=== PATIENT | female | born 1995 | race Caucasian/White ===

== ENCOUNTER 2016-09-08 23:18 | Emergency (ER) | payer BC, MEDICAID ==
[~2016-09-08 23:18] MED LIST: DOCO200C PO; MACR100C2 PO; PROM25TA5 PO
--- NOTE | 2016-09-09 00:12 | PD ---
HPI Chief Complaint leaking? Date Seen: Sep 09, 2016 Time Seen: 00:00 Travel History International Travel<30 Days: No Contact w/Intl Traveler<30Days: No Known Affected Area: No History of Present Illness HPI Pt is a 21 y/o G1 with IUP at 40 wks who presents for eval for SROM. Pt states she felt vaginal wetness this am around 5, then again when she awoke at 7. Pt reports she noted mucous this am, but continued to feel wet throughout the day, and fluid was more watery (less mucous) with no odor. Pt reports occ contractions and abdominal soreness. denies vb. +FM Para: 0 : 1 History Past Medical History Narrative Medical migraines Past Surgical History Surgical History: No Previous Surgery Family History Family History: Negative Social History Alcohol Use: No Tobacco Use: Yes (2 cigarettes/day) Substance Abuse: No (h/o marijuana use, denies current use) Allergies-Medications (Allergen,Severity, Reaction): Coded Allergies: No Known Allergies (Verified , 02/09/16) Home Meds Active Scripts Nitrofurantoin Monohydrate Macrocrystals (Macrobid)100 Mg [id number] Mg PO BID 7 Days Ref 0 Prov:Dipti Mills DIRECTOR RISK 02/09/16 Reported Medications Docosahexaenoic Acid ( Dha)200 Mg Cap1 Cap PO DAILY 02/09/16 Promethazine (Phenergan)25 Mg Tab25 Mg PO Q6H PRN (Nausea/Vomiting) Ref 0 02/09/16 Review of Systems General / Constitutional: Weight Gain Eyes: No: Diploplia, Blurred Vision, Visual changes, Pain, Photophobia, Other HENT: No: Headaches, Vertigo, Dental Difficulties, Lightheadedness, Other Respiratory: No: Cough, Short of Breath, Wheezing, Other Gastrointestinal: No: Nausea, Vomiting, Diarrhea, Abdominal Pain, Hematemesis, Hematochezia, Constipation, Changes in Bowel Habits, Indigestion, Loss of Appetite, Other Genitourinary: No: Urgency, Frequency, Dysuria, Nocturia, Hematuria, Decreased Urinary Output, Oliguria, Hesitancy, Dribbling, Incontinence, Pelvic Pain, Dyspareunia, Discharge, Menorrhagia, Vaginal Bleeding, Other Musculoskeletal: No: Limited ROM, Weakness, Cramping, Edema, Pain, Other Skin: No Rash, No Itching, No Dryness, No Lumps, No Change in Pigmentation, No Change in Nails, No Alopecia, No Lesions, No Breast Lumps, No Breast Tenderness , No Breast Swelling, No Other Neurologic: No: Weakness, Dizziness, Syncope, Focal Abnormalities, Coordination Problem, Headache, Slurred Speech, Seizures, Other Psychiatric: No: Anxiety, Depression, Suicidal Ideations, Disorder of Thought, Mood Disorder, Substance Abuse, Homicidal Ideation, Other Endocrine: No: Heat Intolerance, Cold Intolerance, Polydipsia, Polyuria, Other Hematologic/Lymphatic: No Easy Bruising, No Lymph Node Enlargement, No Other Physical Exam 123/91, repeat BP 113/74 Narrative GENERAL: Well-nourished, well-developed patient. SKIN: Warm and dry. HEAD: Normocephalic and atraumatic. EYES: No scleral icterus. No injection or drainage. ENT: No nasal drainage noted. Mucous membranes pink. Airway patent. NECK: Supple, trachea midline. No JVD. CARDIOVASCULAR: Regular rate and rhythm without murmurs, gallops, or rubs. RESPIRATORY: Breath sounds equal bilaterally. No accessory muscle use. ABDOMEN/GI: Abdomen soft, non-tender, bowel sounds present, no rebound, no guarding Gravid GENITOURINARY: External Genitalia: intact and normal in appearance BUS glands: [-] Cervix: 1/thick/-3 per RN exam Dilatation: [-] Effacement: [-] Station: [-] Presentation: [-] Membranes: intact; amnisure negative Uterine Contractions: irritability FHT's: Category: 1 Baseline: 130s Reactive: yes Variability: mod Decels: none EXTREMITIES: No cyanosis or edema. BACK: Nontender without obvious deformity. No CVA tenderness. NEUROLOGICAL: Awake and alert. Motor and sensory grossly within normal limits. Five out of 5 muscle strength in all muscle groups. Normal speech. Data Data Vital Signs Reviewed: Yes MDM Medical Record Reviewed: Yes Narrative Course / MDM 21 y/o G1 with IUP at 40w with possible LOF --amnisure neg --no evidence of labor at this time keep OB appt tomorrow labor precautions/FKC Diagnosis Diagnosis: Primary Impression: False labor after 37 completed weeks of gestation Additional Impression: 40 weeks gestation of Disposition: DISCHARGE HOME Condition: Stable Patient Instructions: Movement (ED), Having Your Baby: The Labor Process (GEN), General Instructions, Early Labor Signs (ED) Stew Mitchell MD Sep 09, 2016 00:12
== END 2016-09-09 01:45 | disposition home or self-care (01) ==
LOC: HOBED 23:18
DX: O47.1 False labor at or after 37 completed weeks of gestation (principal); O99.333 Smoking (tobacco) complicating pregnancy, third trimester; Z3A.40 40 weeks gestation of pregnancy
CPT/HCPCS: 84112; 99282

== ENCOUNTER 2016-09-14 03:06 | Emergency (ER) | payer MEDICAID ==
--- NOTE | 2016-09-14 03:46 | PD ---
HPI Chief Complaint contractions Date Seen: Sep 14, 2016 Time Seen: 03:40 Travel History International Travel<30 Days: No Contact w/Intl Traveler<30Days: No Known Affected Area: No History of Present Illness HPI 21 yo at 40 and 4 days arrives with contractions for past several hours. Irritating but not terribly strong Para: 0 : 1 History Past Medical History Narrative Medical migraines Past Surgical History Surgical History: No Previous Surgery Family History Family History: Negative Social History Alcohol Use: No Tobacco Use: Yes (1/2 ppd) Substance Abuse: Yes (marijuana) Allergies-Medications (Allergen,Severity, Reaction): Coded Allergies: No Known Allergies (Verified , 09/09/16) Home Meds Active Scripts Nitrofurantoin Monohydrate Macrocrystals (Macrobid)100 Mg [id number] Mg PO BID 7 Days Ref 0 Prov:[employer] PROCESS ARCHITECT 02/09/16 Reported Medications Docosahexaenoic Acid ( Dha)200 Mg Cap1 Cap PO DAILY 02/09/16 Promethazine (Phenergan)25 Mg Tab25 Mg PO Q6H PRN (Nausea/Vomiting) Ref 0 02/09/16 Review of Systems Except as stated in HPI: all other systems reviewed are Neg Physical Exam Narrative GENERAL: Well-nourished, well-developed patient. SKIN: Warm and dry. HEAD: Normocephalic and atraumatic. EYES: No scleral icterus. No injection or drainage. ENT: No nasal drainage noted. Mucous membranes pink. Airway patent. NECK: Supple, trachea midline. No JVD. CARDIOVASCULAR: Regular rate and rhythm without murmurs, gallops, or rubs. RESPIRATORY: Breath sounds equal bilaterally. No accessory muscle use. BREASTS: Bilateral exam showed no masses , no retractions, no nipple discharge. ABDOMEN/GI: Abdomen soft, non-tender, bowel sounds present, no rebound, no guarding Gravid to [-37] weeks size Fundal Height: [-] GENITOURINARY: External Genitalia: intact and normal in appearance BUS glands: [-nl] Cervix: [posterior-] Dilatation: [1-] Effacement: [-50] Station: [-3-] Presentation: [vertex-] Membranes: [intact] Uterine Contractions: [q8min irregular] FHT's: Category: [1-] Baseline: [145-] Reactive: [mod-] Variability: [mod-] Decels: [absent-] EXTREMITIES: No cyanosis or edema. BACK: Nontender without obvious deformity. No CVA tenderness. NEUROLOGICAL: Awake and alert. Motor and sensory grossly within normal limits. Five out of 5 muscle strength in all muscle groups. Normal speech. Data Data Vital Signs Reviewed: Yes [facility] Medical Record Reviewed: Yes Plan 21 yo at 40 5days gestation with false labor, no cervical change since last appointment 1 week ago Appt today at 9:30am for evaluation in office Diagnosis Diagnosis: Primary Impression: 40 weeks gestation of Additional Impression: False labor after 37 completed weeks of gestation Disposition: 01 DISCHARGE HOME Rakel Plummer MD Sep 14, 2016 03:45
[2016-09-14] MEDS ORDERED: PREN1TAB58 (21:52)
== END 2016-09-14 03:48 | disposition home or self-care (01) ==
LOC: HOBED 03:06
DX: O47.1 False labor at or after 37 completed weeks of gestation (principal); O99.333 Smoking (tobacco) complicating pregnancy, third trimester; Z3A.40 40 weeks gestation of pregnancy; Z79.899 Other long term (current) drug therapy
CPT/HCPCS: 59025

== ENCOUNTER 2016-09-14 08:01 | Inpatient (IN) | payer MEDICAID ==
[2016-09-14] VITALS (126 sets, daily range): BP systolic 92–155; BP diastolic 41–90; PULSE 62–172; RESP 2–20; TEMP 97.5–99
[~2016-09-14] VITALS: Ht 172.7 cm; Wt 69.9 kg
[2016-09-14] MEDS ORDERED: LACTATED RINGER'S 1000 ML INJ 1,000 ML IV PRN (08:32)
[2016-09-14] MEDS ORDERED: LACTATED RINGER'S 1000 ML INJ 1,000 ML IV SCH (08:32)
--- NOTE | 2016-09-14 08:32 | PD ---
HPI Chief Complaint Contractions Date Seen: Sep 14, 2016 Time Seen: 08:28 Travel History International Travel<30 Days: No Contact w/Intl Traveler<30Days: No Known Affected Area: No History of Present Illness HPI 21-year-old who is at 40 weeks and 5 days who comes in complaining of worsening contractions. She was seen at about 0300 today due to contractions but cervix was only a centimeter which was unchanged with her previous cervical exam. She states since that time her contractions have worsened in intensity and increased in frequency along with bloody show. Patient is GBS negative Para: 0 : 1 History Past Medical History Medical History: Denies Significant Hx Past Surgical History Surgical History: No Previous Surgery Family History Family History: Negative Social History Alcohol Use: No Tobacco Use: Yes (half a pack per day) Substance Abuse: Yes (marijuana) Allergies-Medications (Allergen,Severity, Reaction): Coded Allergies: No Known Allergies (Verified , 09/09/16) Home Meds Active Scripts Nitrofurantoin Monohydrate Macrocrystals (Macrobid)100 Mg [id number] Mg PO BID 7 Days Ref 0 Prov:Dipti Mills 02/09/16 Reported Medications Docosahexaenoic Acid ( Dha)200 Mg Cap1 Cap PO DAILY 02/09/16 Promethazine (Phenergan)25 Mg Tab25 Mg PO Q6H PRN (Nausea/Vomiting) Ref 0 02/09/16 Review of Systems Except as stated in HPI: all other systems reviewed are Neg Physical Exam Narrative GENERAL: Well-nourished, well-developed patient. SKIN: Warm and dry. HEAD: Normocephalic and atraumatic. EYES: No scleral icterus. No injection or drainage. ENT: No nasal drainage noted. Mucous membranes pink. Airway patent. NECK: Supple, trachea midline. No JVD. CARDIOVASCULAR: Regular rate and rhythm without murmurs, gallops, or rubs. RESPIRATORY: Breath sounds equal bilaterally. No accessory muscle use. BREASTS: Bilateral exam showed no masses , no retractions, no nipple discharge. ABDOMEN/GI: Abdomen soft, non-tender, bowel sounds present, no rebound, no guarding Gravid to [-38] weeks size Fundal Height: [-] GENITOURINARY: External Genitalia: intact and normal in appearance BUS glands: [-Normal] Cervix: [Mid position] Dilatation: [2-3] Effacement: [90-] Station: [--2] Presentation: [-Vertex] Membranes: [intact ] Uterine Contractions: [Every 5-] FHT's: Category: [1-] Baseline: [150-] Reactive: [Moderate-] Variability: [Moderate-] Decels: [-Absent] EXTREMITIES: No cyanosis or edema. BACK: Nontender without obvious deformity. No CVA tenderness. NEUROLOGICAL: Awake and alert. Motor and sensory grossly within normal limits. Five out of 5 muscle strength in all muscle groups. Normal speech. Data Data Vital Signs Reviewed: Yes MDM Plan 21-year-old who is at 40 weeks and 5 days comes in in early labor Definite cervical change since her last exam at 03 100 today, patient is GBS negative Plan admission to labor and delivery and patient requests epidural Diagnosis Diagnosis: Primary Impression: 40 weeks gestation of Additional Impression: Irregular uterine contractions Rakel Plummer MD Sep 14, 2016 08:32
[2016-09-14] MEDS ORDERED: CITRIC ACID-SODIUM CITRATE LIQ 30 ML UDC PO SCH (08:45)
[2016-09-14] MEDS ORDERED: MINERAL OIL 10 ML VIAL TOPICAL PRN (08:45)
[2016-09-14] MEDS ORDERED: LIDOCAINE HCL 1% 50 ML VIAL I-DERMAL PRN (08:45)
[2016-09-14] MEDS ORDERED: SODIUM CHLORID 0.9% 500 ML INJ 500 ML IV PRN (08:45)
[2016-09-14] MEDS ORDERED: OXYTOCIN 30 UNITS-500ML PREMIX 500 ML IV ONE (08:45)
[2016-09-14] MEDS ORDERED: LIDOCAINE HCL 1% 50 ML VIAL INFIL PRN (08:45)
[2016-09-14] MEDS ORDERED: SODIUM CHLOR 0.9% 1000 ML INJ 1,000 ML IV PRN (08:52)
[2016-09-14 09:06] LABS: AUTOMATED NEUTROPHIL # 11.5 TH/MM3 (1.8-7.7); BASOPHIL % 0.3 % (0.0-2.0); EOSINOPHIL % 0.2 % (0.0-4.0); HEMATOCRIT 40.6 % (35.0-46.0); HEMO FLAGS DIFF FINAL; MEAN CELL VOLUME 89.4 FL (80.0-100.0); MEAN CORPUSCULAR HEMOGLOBIN 30.2 PG (27.0-34.0); MEAN CORPUSCULAR HGB CONC 33.7 % (32.0-36.0); MONO % 10.1 % (0.0-8.0); NEUT % 76.4 % (16.0-70.0); PLATELET COUNT 190 TH/MM3 (150-450); RED BLOOD COUNT 4.54 MIL/MM3 (4.00-5.30); RED CELL DISTRIBUTION WIDTH 13.3 % (11.6-17.2); WHITE BLOOD COUNT 15.1 TH/MM3 (4.0-11.0)
[2016-09-14] MEDS ORDERED: ePHEDrine/NS 25 MG/5 ML SYR ONE (09:18)
[2016-09-14] MEDS ORDERED: fentaNYL 2MCG-BUPIV 0.125% INJ 100 ML ONE ×2 (09:18→17:18)
[2016-09-14 09:25] LABS: BLOOD, URINE NEG (NEG); COMMENT (UR) CULT NOT INDICATED; CULTURE IF INDICATED CULT NOT INDICATED; GLUCOSE,URINE NEG (NEG); KETONE, URINE 80 mg/dL (NEG); MUCUS URINE FEW /lpf (OCC); NITRITE,URINE NEG (NEG); PH, URINE 7.5 (5.0-8.5); URINE COLOR YELLOW (YELLW/STRAW)
[2016-09-14 10:32] LABS: AMPHETAMINE, URINE NEG (NEG); BARBITURATES, URINE NEG (NEG); COCAINE, URINE NEG (NEG)
[2016-09-14] MEDS ORDERED: OXYTOCIN 30 UNITS-500ML PREMIX 500 ML IV SCH (11:30)
[2016-09-14] MEDS ORDERED: DIPHTH/TETANUS/ACEL PERTUSSIS (BOOSTER) 0.5 ML VIAL/PFS IM ONE (16:00)
[2016-09-14] MEDS ORDERED: MEASLES, MUMPS, RUBELLA VACCINE 0.5 ML VIAL SQ ONE (16:00)
--- NOTE | 2016-09-14 19:27 | PD.LABORPN ---
Subjective Subjective Labor Note Asked by Dr. Farley to attend delivery on his behalf. Upon entry into room, I introduced myself to patient and explained that Dr. Farley had asked me to attend delivery on his behalf. FHR were noted to be reassuring and SVE revealed patient C/C/+2 with spontaneous desire to push. Commenced spontaneous maternal expulsive efforts with subsequent atraumatic expulsion of head followed by atraumatic and spontaneous delivery of anterior shoulder and remainder of . vigorous at delivery and placed on maternal abdomen. Cord clamped after 1 minute delay. Placenta delivered spontaneously and appeared to be intact. APGARs 8/9. First degree left labial laceration repaired with 3-0 chromic and a superficial R labial laceration repaired with 3- 0 chromic. Excellent hemostasis and cosmesis noted. EBL 200cc. Objective Vital Signs Vital Signs Date Time Temp Pulse Resp B/P Pulse Ox O2 Delivery O2 Flow Rate FiO2 09/14/16 19:05 18 09/14/16 19:05 97.8 09/14/16 19:00 121 121/81 09/14/16 18:40 71 17 18:35 83 09/14/16 18:30 83 120/79 09/14/16 18:30 77 09/14/16 18:25 67 09/14/16 18:20 68 09/14/16 18:15 70 09/14/16 18:10 67 09/14/16 18:05 69 09/14/16 18:01 172 120/41 09/14/16 18:00 70 09/14/16 17:55 68 09/14/16 17:50 150 09/14/16 17:45 70 09/14/16 17:40 66 09/14/16 17:35 69 09/14/16 17:31 20 09/14/16 17:31 98.3 2 09/14/16 17:30 74 09/14/16 17:30 81 107/70 09/14/16 17:25 68 09/14/16 17:20 71 09/14/16 17:15 66 09/14/16 17:10 67 09/14/16 17:05 63 09/14/16 17:00 69 09/14/16 17:00 81 122/74 09/14/16 16:55 67 7/18/17 16:50 71 7/18/17 16:45 79 7/18/17 16:35 71 7/18/17 16:30 65 7/18/17 16:30 69 126/77 7/18/17 16:25 72 7/18/17 16:20 77 7/18/17 16:15 77 123/76 7/18/17 16:15 63 7/18/17 16:10 68 7/18/17 16:05 70 7/18/17 16:00 69 7/18/17 16:00 68 115/78 7/18/17 15:55 69 7/18/17 15:50 67 7/18/17 15:45 67 126/82 7/18/17 15:45 71 7/18/17 15:40 65 7/18/17 15:35 67 7/18/17 15:30 65 7/18/17 15:30 98.0 7/18/17 15:30 66 118/76 7/18/17 15:25 69 7/18/17 15:20 63 7/18/17 15:15 76 119/74 7/18/17 15:15 67 7/18/17 15:10 71 7/18/17 15:05 71 7/18/17 15:00 101 122/85 7/18/17 15:00 72 7/18/17 14:55 74 7/18/17 14:50 84 7/18/17 14:45 77 7/18/17 14:45 76 105/59 7/18/17 14:40 73 7/18/17 14:35 69 7/18/17 14:30 65 108/63 7/18/17 14:30 63 7/18/17 14:25 67 7/18/17 14:20 67 7/18/17 14:15 83 7/18/17 14:15 78 122/71 7/18/17 14:10 156 7/18/17 14:05 64 7/18/17 14:00 69 104/52 7/18/17 14:00 65 7/18/17 13:55 71 7/18/17 13:50 75 7/18/17 13:45 109/56 7/18/17 13:45 71 7/18/17 13:45 71 7/18/17 13:40 86 7/18/17 13:35 79 7/18/17 13:30 73 105/59 7/18/17 13:30 74 7/18/17 13:25 107 7/18/17 13:20 73 7/18/17 13:15 64 7/18/17 13:15 67 108/68 7/18/17 13:10 78 7/18/17 13:05 66 7/18/17 13:00 82 7/18/17 13:00 76 105/64 7/18/17 12:55 66 7/18/17 12:50 65 7/18/17 12:45 62 106/67 7/18/17 12:45 74 7/18/17 12:40 69 7/18/17 12:35 70 7/18/17 12:30 82 107/61 7/18/17 12:30 67 7/18/17 12:25 65 7/18/17 12:20 64 7/18/17 12:15 73 124/70 718/17 12:15 69 7/18/17 12:10 74 /18/17 12:09 101 122/69 7/18/17 12:08 98.1 16 7/18/17 12:05 101 /18/17 12:00 71 104/57 718/17 12:00 63 7/18/17 11:55 63 7/18/17 11:50 65 7/18/17 11:45 95 7/18/17 11:45 70 113/75 7/18/17 11:40 102 /18/17 11:35 65 7/18/17 11:30 70 99/69 718/17 11:30 77 7/18/17 11:25 74 Objective Pelvic Exam: Cervix: [-] Dilatation: [-] Effacement: [-] Station: [-] Presentation: [-] Membranes: [intact or ruptured] Uterine Contractions: [-] FHT's: Category: [-] Baseline: [-] Reactive: [-] Variability: [-] Decels: [-] Leti Issa MD Sep 14, 2016 19:27
--- NOTE | 2016-09-14 19:29 | PD.OB.DELI ---
Delivery Date: Sep 14, 2016 Anesthesia: Epidural Episiotomy: None Vaginal Delivery: Normal Presentation: Occiput anterior Nuchal Cord: None Delayed cord clamping (45 sec): Yes Infant: Female One Minute : 8 Five Minute : 9 Placenta: Spontaneous delivery Repair: Chromic interrupted Additional Information 1st degree L labial laceration, superficial R labial laceration, repaired with 3 -0 chromic See additional Note. Leti Issa MD Sep 14, 2016 19:29
[2016-09-14] MEDS ORDERED: DOCUSATE SODIUM 50 MG/SENNA 8.6 MG TAB PO PRN (19:45)
[2016-09-14] MEDS ORDERED: ACETAMINOPHEN 325 MG TAB PO PRN (19:45)
[2016-09-14] MEDS ORDERED: BENZOCAINE 20% TOPICAL SPRAY 60 ML CAN TOPICAL PRN (19:45)
[2016-09-14] MEDS ORDERED: IBUPROFEN 600 MG TAB PO PRN (19:45)
[2016-09-14] MEDS ORDERED: WITCH HAZEL 50%/GLYCERIN 12.5% 40 PAD JAR TOPICAL PRN (19:45)
[2016-09-14] MEDS ORDERED: ALUMINUM/MAGNESIUM/SIMETH 30 ML CUP PO PRN (19:45)
[2016-09-14] MEDS ORDERED: SODIUM CHLORIDE 0.9% FLUSH 10 ML FLUSH IV FLUSH PRN (19:45)
[2016-09-14] MEDS ORDERED: ZOLPIDEM TARTRATE 5 MG TAB PO PRN (19:45)
[2016-09-14] MEDS ORDERED: ONDANSETRON ODT 4 MG TAB PO PRN (19:45)
[2016-09-14] MEDS ORDERED: DO NOT ADMINISTER ANTICOAGULANTS PRN (21:00)
[2016-09-14] MEDS ORDERED: NO SYSTEM NARCOTICS PRN (21:00)
[2016-09-14] MEDS ORDERED: SODIUM CHLORIDE 0.9% FLUSH 10 ML FLUSH IV FLUSH SCH (21:00)
[2016-09-14] MEDS ORDERED: fentaNYL 2MCG-BUPIV 0.125% 100 ML EPIDURAL SCH (21:00)
[2016-09-14] MEDS ORDERED: ePHEDrine/NS 25 MG/5 ML SYR IV PRN (21:00)
[2016-09-14] MEDS ORDERED: PREN1TAB58 (21:52)
[2016-09-15 08:42] VITALS: BP 121/71; PULSE 74; RESP 16; TEMP 98
--- NOTE | 2016-09-15 08:50 | HHI.OB ---
Subjective Post Day: 1 Remarks doing well with no complaints nursing delivered by laborist Objective Vitals/I&O Vital Signs Date Time Temp Pulse Resp B/P Pulse Ox O2 Delivery O2 Flow Rate FiO2 09/15/16 08:42 98.0 74 16 719/17 08:42 121/71 7/18/17 21:41 99.0 83 18 7/18/17 21:41 118/76 7/18/17 20:16 98.2 718/17 20:15 16 7/18/17 20:15 86 120/81 718/17 20:00 73 117/84 718/17 19:47 16 7/18/17 19:45 68 112/74 7/18/17 19:31 79 18 114/79 7/18/17 19:17 94 119/74 718/17 19:05 18 7/18/17 19:05 97.8 7/18/17 19:00 121 121/81 718/17 18:40 71 7/18/17 18:35 83 7/18/17 18:30 83 120/79 718/17 18:30 77 7/18/17 18:25 67 7/18/17 18:20 68 7/18/17 18:15 70 7/18/17 18:10 67 7/18/17 18:05 69 7/18/17 18:01 172 120/41 7/18/17 18:00 70 7/18/17 17:55 68 7/18/17 17:50 150 7/18/17 17:45 70 7/18/17 17:40 66 7/18/17 17:35 69 7/18/17 17:31 20 7/18/17 17:31 98.3 2 7/18/17 17:30 74 7/18/17 17:30 81 107/70 7/18/17 17:25 68 7/18/17 17:20 71 7/18/17 17:15 66 7/18/17 17:10 67 7/18/17 17:05 63 7/18/17 17:00 69 7/18/17 17:00 81 122/74 7/18/17 16:55 67 7/18/17 16:50 71 7/18/17 16:45 79 7/18/17 16:35 71 7/18/17 16:30 65 7/18/17 16:30 69 126/77 7/18/17 16:25 72 7/18/17 16:20 77 7/18/17 16:15 77 123/76 7/18/17 16:15 63 7/18/17 16:10 68 7/18/17 16:05 70 7/18/17 16:00 69 7/18/17 16:00 68 115/78 7/18/17 15:55 69 7/18/17 15:50 67 7/18/17 15:45 67 126/82 7/18/17 15:45 71 7/18/17 15:40 65 7/18/17 15:35 67 7/18/17 15:30 65 7/18/17 15:30 98.0 7/18/17 15:30 66 118/76 7/18/17 15:25 69 7/18/17 15:20 63 7/18/17 15:15 76 119/74 7/18/17 15:15 67 7/18/17 15:10 71 7/18/17 15:05 71 7/18/17 15:00 101 122/85 7/18/17 15:00 72 7/18/17 14:55 74 7/18/17 14:50 84 7/18/17 14:45 77 7/18/17 14:45 76 105/59 7/18/17 14:40 73 7/18/17 14:35 69 7/18/17 14:30 65 108/63 7/18/17 14:30 63 7/18/17 14:25 67 7/18/17 14:20 67 7/18/17 14:15 83 7/18/17 14:15 78 122/71 7/18/17 14:10 156 7/18/17 14:05 64 7/18/17 14:00 69 104/52 7/18/17 14:00 65 7/18/17 13:55 71 7/18/17 13:50 75 7/18/17 13:45 109/56 7/18/17 13:45 71 7/18/17 13:45 71 7/18/17 13:40 86 7/18/17 13:35 79 7/18/17 13:30 73 105/59 7/18/17 13:30 74 7/18/17 13:25 107 7/18/17 13:20 73 7/18/17 13:15 64 7/18/17 13:15 67 108/68 7/18/17 13:10 78 7/18/17 13:05 66 7/18/17 13:00 82 7/18/17 13:00 76 105/64 7/18/17 12:55 66 7/18/17 12:50 65 7/18/17 12:45 62 106/67 7/18/17 12:45 74 7/18/17 12:40 69 7/18/17 12:35 70 7/18/17 12:30 82 107/61 7/18/17 12:30 67 7/18/17 12:25 65 7/18/17 12:20 64 7/18/17 12:15 73 124/70 7/18/17 12:15 69 7/18/17 12:10 74 7/18/17 12:09 101 122/69 7/18/17 12:08 98.1 16 7/18/17 12:05 101 7/18/17 12:00 71 104/57 7/18/17 12:00 63 7/18/17 11:55 63 7/18/17 11:50 65 7/18/17 11:45 95 7/18/17 11:45 70 113/75 7/18/17 11:40 102 7/18/17 11:35 65 7/18/17 11:30 70 99/69 7/18/17 11:30 77 7/18/17 11:25 74 7/18/17 11:20 66 7/18/17 11:15 67 95/52 7/18/17 11:15 63 7/18/17 11:10 77 7/18/17 11:05 69 7/18/17 11:00 78 115/51 7/18/17 11:00 77 7/18/17 10:55 104 7/18/17 10:50 79 7/18/17 10:45 125 7/18/17 10:45 103 99/64 7/18/17 10:40 102 107/68 7/18/17 10:40 103 7/18/17 10:35 75 7/18/17 10:35 106 110/68 09/14/16 10:30 98 09/14/16 10:30 84 111/59 09/14/16 10:25 109 115/75 09/14/16 10:25 93 09/14/16 10:20 103 92/58 09/14/16 10:20 141 09/14/16 10:15 115 09/14/16 10:15 75 107/62 09/14/16 10:10 128 108/63 09/14/16 10:10 68 09/14/16 09:03 97.5 101 20 155/90 09/14/16 08:50 125 Objective Remarks GENERAL: Well-nourished, well-developed patient. CARDIOVASCULAR: Regular rate and rhythm without murmurs, gallops, or rubs. RESPIRATORY: Breath sounds equal bilaterally. No accessory muscle use. ABDOMEN/GI: Abdomen soft, non-tender. Fundus: Firm, non-tender at umbilicus. GENITOURINARY: Light to moderate bleeding. EXTREMITIES: No cyanosis or edema, non-tender, without signs of DVT. Medications and IVs Current Medications Medications (Trade) Dose Ordered Sig/Mateo Route Start Time Stop Time Status Last Admin (NS Flush) 2 ml BID IV FLUSH 09/14/16 21:00 (NS Flush) 2 ml UNSCH PRN IV FLUSH 09/14/16 19:45 (Tylenol) 650 mg Q4H PRN PO 09/14/16 19:45 (Motrin) 600 mg Q6H PRN PO 09/14/16 19:45 (Americaine 20% Top Spr) 1 spray Q4H PRN TOPICAL 09/14/16 19:45 09/14/16 21:47 (Tucks Pads) 1 applic QID PRN TOPICAL 09/14/16 19:45 09/14/16 21:47 (Mary-Colace) 2 tab Q12H PRN PO 09/14/16 19:45 (Ambien) 5 mg HS PRN PO 09/14/16 19:45 (Mag-Al Plus Susp Liq) 15 ml Q8H PRN PO 09/14/16 19:45 (Zofran Odt) 4 mg Q6H PRN PO 09/14/16 19:45 09/14/16 21:56 Miscellaneous Information No systemic narcotics to be given except... UNSCH PRN .XX 09/14/16 21:00 09/15/16 20:59 Miscellaneous Information DO NOT ADMINISTER ANY ANTICOAGUL... UNSCH PRN .XX 09/14/16 21:00 09/15/16 20:59 (fentaNYL 2MCG-BUPIV 0.125% INJ) 100 ml @ 0 mls/hr TITRATE EPIDURAL 09/14/16 21:00 (ePHEDrine/NS 25 MG/5 ML SYR) 10 mg UNSCH PRN IV 09/14/16 21:00 09/15/16 20:59 Assessment/Plan Assessment and Plan routine PPD 1 anticipate discharge in am Jeanne Pendleton MD Sep 15, 2016 08:50
[2016-09-15 19:11] VITALS: BP 109/60; PULSE 59; RESP 16; TEMP 98.2
[2016-09-16 08:00] VITALS: BP_SYST 105; BP_SYST 115; BP_DIAS 68; BP_DIAS 69; PULSE 62; RESP 16; TEMP 97.9
--- NOTE | 2016-09-16 08:53 | HHI.OB ---
Subjective Post Day: 2 Remarks doing well nursing going well no concerns ready for discharge Objective Vitals/I&O Vital Signs Date Time Temp Pulse Resp B/P Pulse Ox O2 Delivery O2 Flow Rate FiO2 09/16/16 08:00 105/68 09/16/16 08:00 97.9 62 16 09/16/16 08:00 115/69 09/15/16 19:11 98.2 59 16 109/60 Objective Remarks GENERAL: Well-nourished, well-developed patient. CARDIOVASCULAR: Regular rate and rhythm without murmurs, gallops, or rubs. RESPIRATORY: Breath sounds equal bilaterally. No accessory muscle use. ABDOMEN/GI: Abdomen soft, non-tender. Fundus: Firm, non-tender at umbilicus. GENITOURINARY: Light to moderate bleeding. EXTREMITIES: No cyanosis or edema, non-tender, without signs of DVT. Medications and IVs Current Medications Medications (Trade) Dose Ordered Sig/Mateo Route Start Time Stop Time Status Last Admin (NS Flush) 2 ml BID IV FLUSH 09/14/16 21:00 (NS Flush) 2 ml UNSCH PRN IV FLUSH 09/14/16 19:45 (Tylenol) 650 mg Q4H PRN PO 09/14/16 19:45 (Motrin) 600 mg Q6H PRN PO 09/14/16 19:45 09/15/16 14:26 (Americaine 20% Top Spr) 1 spray Q4H PRN TOPICAL 09/14/16 19:45 09/14/16 21:47 (Tucks Pads) 1 applic QID PRN TOPICAL 09/14/16 19:45 09/14/16 21:47 (Mary-Colace) 2 tab Q12H PRN PO 09/14/16 19:45 (Ambien) 5 mg HS PRN PO 09/14/16 19:45 (Mag-Al Plus Susp Liq) 15 ml Q8H PRN PO 09/14/16 19:45 Ondansetron HCl 4 mg 4 mg Q6H PRN PO 09/14/16 19:45 09/14/16 21:56 (fentaNYL 2MCG-BUPIV 0.125% INJ) 100 ml @ 0 mls/hr TITRATE EPIDURAL 09/14/16 21:00 Assessment/Plan Assessment and Plan routine PPD 2 home today discussed PPD, pelvic rest, routine care RTO 6 weeks or prn Jeanne Pendleton MD Sep 16, 2016 08:52
--- NOTE | 2016-09-16 08:54 | HHI.DCPOC ---
Discharge Care Plan Report Symptoms to Your Doctor -Temperature above 100.5 degrees -Redness, of incision or excessive or foul smelling drainage -Unusual pain or calf pain -Increased vaginal bleeding -Painful or difficulty urinating -Feelings of extreme sadness or anxiety after 2 weeks Goals to Promote Your Health * To prevent worsening of your condition and complications * To maintain your health at the optimal level Directions to Meet Your Goals Take your medications as prescribed Follow your dietary instruction Follow activity as directed Ensure plenty of rest for recovery Drink fluids for hydration Keep your appointments as scheduled Take your immunizations and boosters as scheduled If your symptoms worsen call your PCP, if no PCP go to Urgent Care Center or Emergency Room Smoking is Dangerous to Your Health. Avoid second hand smoke Call the 24-hour crisis hotline for domestic abuse at Jeanne Pendleton MD Sep 16, 2016 08:54
[2016-09-17 12:47] LABS: BATH SALTS (MDPV) UR NEG (NEG); ECSTASY (MDMA) UR NEG (NEG); GABAPENTIN UR NEG (NEG); HEROIN (6-ACETYLMORPHINE) UR NEG (NEG); HYDROMORPHONE U NEG (NEG); K2 SPICE UR NEG (NEG); OBMETHADONE UR NEG (NEG); OXYCODONE (PERCODAN) NEG (NEG); PHENCYCLIDINE URINE NEG (NEG)
== END 2016-09-16 11:10 | disposition home or self-care (01) | DRG 775 ==
LOC: HOBED 08:01 → H2EB 08:38 → H1EA 21:23
PROVIDERS: ADMIT Obstetrics & Gynecology; ATTEND Obstetrics & Gynecology
PROC: 10E0XZZ Delivery of Products of Conception, External Approach (ICD-10-PCS; principal; 2016-09-14)
PROC: 0HQ9XZZ Repair Perineum Skin, External Approach (ICD-10-PCS; 2016-09-14)
PROC: 3E0S3CZ (ICD-10-PCS; 2016-09-14)
PROC: 00HU33Z Insertion of Infusion Device into Spinal Canal, Percutaneous Approach (ICD-10-PCS; 2016-09-14)
DX: O99.324 Drug use complicating childbirth (principal); O99.334 Smoking (tobacco) complicating childbirth; O70.0 First degree perineal laceration during delivery; Z37.0 Single live birth; Z3A.40 40 weeks gestation of pregnancy
CPT/HCPCS: 59025; 80307; 81001; 85025; 86900; 86901; 90715; G0481; J2590; J3010; J7120

== ENCOUNTER 2017-08-03 11:35 | Emergency (ER) | payer MEDICAID ==
[~2017-08-03] VITALS: Ht 172.7 cm; Wt 56.5 kg
[~2017-08-03 11:35] MED LIST changes: -DOCO200C PO; -MACR100C2 PO; +PREN1TAB58; -PROM25TA5 PO
[2017-08-03 11:46] VITALS: BP 132/87; PULSE 80; RESP 16; TEMP 97.4; O2SAT 100
--- NOTE | 2017-08-03 12:18 | PD ---
HPI Chief Complaint: GI Complaint Time Seen by Provider: 12:04 Travel History International Travel<30 days: No Contact w/Intl Traveler<30days: No Traveled to known affect area: No History of Present Illness HPI 22-year-old female came to the emergency room with history of intractable nausea and vomiting for past 2 weeks. Patient is about 8 weeks . Last menstrual cycle was in the end of April. Patient is A0. Patient says her nausea is getting worse. She went to [facility] 4 days ago for the same symptoms and was given IV fluid and nausea medication and was discharged home on Zofran. However patient says Zofran is not working. She looks in moderate distress. Vital signs are relatively stable. No history of bleeding or spotting. She has not seen an OB yet. No history of pelvic cramps. Patient says she feels dehydrated. PFS Past Medical History Narrative Medical List of her past medical, surgical, social and family history reviewed from the nursing note Asthma: No Cardiovascular Problems: No Diminished Hearing: No Neurologic: No Respiratory: No Migraines: Yes Influenza Vaccination: No ?: LMP: 06/02/2017 : 1 Para: 2 Past Surgical History Surgical History: No Previous Surgery Social History Alcohol Use: No Tobacco Use: No Substance Use: No Allergies-Medications (Allergen,Severity, Reaction): Coded Allergies: No Known Allergies (Verified Adverse Reaction, Unknown, 08/03/17) Comments No known drug allergies. Reported Meds & Prescriptions Reported Meds & Active Scripts Active Phenergan Supp (Promethazine HCl) 12.5 Mg Supp 12.5 Mg RECTAL Q4H PRN Reported Vitamin Formula Tb ( Vit/Iron Fumarate/FA) 1 Each Tablet Narrative Medication List of her home medications reviewed from the nursing note. Review of Systems Except as stated in HPI: all other systems reviewed are Neg Gastrointestinal: Positive: Nausea, Vomiting Physical Exam Narrative GENERAL: Awake, alert, moderate distress SKIN: Focused skin assessment warm/dry. HEAD: Atraumatic. Normocephalic. EYES: Pupils equal and round. No scleral icterus. No injection or drainage. ENT: No nasal bleeding or discharge. Dry tongue and mucous membrane. NECK: Trachea midline. No JVD. CARDIOVASCULAR: Regular rate and rhythm. No murmur appreciated. RESPIRATORY: No accessory muscle use. Clear to auscultation. Breath sounds equal bilaterally. GASTROINTESTINAL: Abdomen soft, non-tender, nondistended. Hepatic and splenic margins not palpable. MUSCULOSKELETAL: No obvious deformities. No clubbing. No cyanosis. No edema. NEUROLOGICAL: Awake and alert. No obvious cranial nerve deficits. Motor grossly within normal limits. Normal speech. PSYCHIATRIC: Appropriate mood and affect; insight and judgment normal. Data Data Last Documented VS Orders Orders Complete Blood Count With Diff (08/03/17 12:28) Basic Metabolic Panel (Bmp) (08/03/17 12:28) Urinalysis - C+S If Indicated (08/03/17 12:28) Sodium Chlor 0.9% 1000 Ml Inj (Ns 1000 M (08/03/17 12:30) Sodium Chlor 0.9% 1000 Ml Inj (Ns 1000 M (08/03/17 12:30) Metoclopramide Inj (Reglan Inj) (08/03/17 12:30) Ondansetron Odt (Zofran Odt) (08/03/17 13:45) Arterial Blood Gas (Abg) (08/03/17 ) Lactated Ringer's 1000 Ml Inj (Lr 1000 M (08/03/17 14:45) Lactated Ringer's 1000 Ml Inj (Lr 1000 M (08/03/17 15:45) Ed Discharge Order (08/03/17 15:39) Ondansetron Odt (Zofran Odt) (08/03/17 16:30) Labs Laboratory Tests Test 08/03/17 12:35 08/03/17 14:23 08/03/17 14:40 White Blood Count 7.0 TH/MM3 Red Blood Count 4.63 MIL/MM3 Hemoglobin 14.3 GM/DL Hematocrit 40.4 % Mean Corpuscular Volume 87.3 FL Mean Corpuscular Hemoglobin 30.9 PG Mean Corpuscular Hemoglobin Concent 35.4 % Red Cell Distribution Width 12.9 % Platelet Count 211 TH/MM3 Mean Platelet Volume 8.9 FL Neutrophils (%) (Auto) 75.6 % Lymphocytes (%) (Auto) 13.7 % Monocytes (%) (Auto) 9.5 % Eosinophils (%) (Auto) 1.0 % Basophils (%) (Auto) 0.2 % Neutrophils # (Auto) 5.3 TH/MM3 Lymphocytes # (Auto) 1.0 TH/MM3 Monocytes # (Auto) 0.7 TH/MM3 Eosinophils # (Auto) 0.1 TH/MM3 Basophils # (Auto) 0.0 TH/MM3 CBC Comment DIFF FINAL Differential Comment Blood Urea Nitrogen 8 MG/DL Creatinine 0.62 MG/DL Random Glucose 118 MG/DL Calcium Level 9.4 MG/DL Sodium Level 137 MEQ/L Potassium Level 3.7 MEQ/L Chloride Level 106 MEQ/L Carbon Dioxide Level 15.1 MEQ/L Anion Gap 16 MEQ/L Estimat Glomerular Filtration Rate 122 ML/MIN Blood Gas Puncture Site LT RADIAL Blood Gas Patient Temperature 98.6 Blood Gas HCO3 15 mmol/L Blood Gas Base Excess -8.0 mmol/L Blood Gas Oxygen Saturation 97 % Arterial Blood pH 7.44 Arterial Blood Partial Pressure CO2 23 mmHg Arterial Blood Partial Pressure O2 117 mmHG Arterial Blood Oxygen Content 16.5 Vol % Arterial Blood Carboxyhemoglobin 0.8 % Arterial Blood Methemoglobin 0.6 % Blood Gas Hemoglobin 11.9 G/DL Oxygen Delivery Device ROOM AIR Urine Color YELLOW Urine Turbidity CLEAR Urine pH 6.5 Urine Specific [place] 1.025 Urine Protein 30 mg/dL Urine Glucose (UA) NEG mg/dL Urine Ketones 150 mg/dL Urine Occult Blood NEG Urine Nitrite NEG Urine Bilirubin NEG Urine Urobilinogen LESS THAN 2.0 MG/DL Urine Leukocyte Esterase NEG Urine RBC 1 /hpf Urine WBC 2 /hpf Urine Squamous Epithelial Cells 2 /hpf Urine Amorphous Sediment RARE Urine Mucus FEW /lpf Microscopic Urinalysis Comment CULT NOT INDICATED MDM Medical Decision Making Medical Screen Exam Complete: Yes Emergency Medical Condition: Yes Medical Record Reviewed: Yes Differential Diagnosis Hyperemesis gravidarum, dehydration, ketoacidosis Narrative Course 2:06 PM awaiting for the blood test result. Patient is getting IV fluid bolus 2 and IV nausea medication. 3:41 PM blood test results are back and patient has significant metabolic acidosis based on low bicarb. Urine has large volume of ketones. Based on this the diagnosis of ketoacidosis is made. Patient received 3 boluses of fluid and is feeling better. She says her nausea has gone down from 10 out of 10 to 3 out of 10 at this point. I have ordered another liter of lactated Ringer after which she will be discharged home. Critical Care Narrative Aggregate critical care time was 45 minutes. Time to perform other separately billable procedures was not included in the critical care time. My time did not include minutes spent treating any other patients simultaneously or on activities that did not directly contribute to the patient's treatment. The services I provided to this patient were to treat and/or prevent clinically significant deterioration that could result in: Severe dehydration, hyperemesis gravidarum, ketoacidosis I provided critical care services requiring my management, as noted below: Chart data review, documentation time, medication orders and management, vital sign assessments/reviewing monitor data, ordering and reviewing lab tests, ordering and interpreting/reviewing x-rays and diagnostic studies, care of the patient and discussion of the patient with the admitting physicians. Procedures EKG Prior to Arrival: No Diagnosis Primary Impression: Hyperemesis gravidarum Additional Impression: Ketoacidosis Referrals: Primary Care Physician Additional Instructions: You must find an OB for yourself for this . Take the Phenergan suppository for nausea as needed. Try to keep yourself as hydrated as possible. Return to the ER if condition worsens or any other new concerns. Med/Other Pt SpecificInfo: Prescription(s) given Scripts Promethazine Supp (Phenergan Supp) 12.5 Mg Supp 12.5 MG RECTAL Q4H Y for NAUSEA OR VOMITING, #20 SUPP 0 Refills Prov: Yanira Husain MD 08/03/17 Disposition: 01 DISCHARGE HOME Condition: Stable Yanira Husain MD Aug 03, 2017 12:18
[2017-08-03] MEDS ORDERED: SODIUM CHLOR 0.9% 1000 ML INJ 1,000 ML IV ONE ×2 (12:30)
[2017-08-03] MEDS ORDERED: METOCLOPRAMIDE HCL 10 MG/2 ML VIAL IV PUSH ONE (12:30)
[2017-08-03] MEDS ORDERED: ONDANSETRON ODT 4 MG TAB PO ONE ×2 (13:45→16:30)
[2017-08-03 13:55] LABS: AUTOMATED NEUTROPHIL # 5.3 TH/MM3 (1.8-7.7); BASOPHIL % 0.2 % (0.0-2.0); EOSINOPHIL # 0.1 TH/MM3 (0-0.4); HEMATOCRIT 40.4 % (35.0-46.0); HEMOGLOBIN 14.3 GM/DL (11.6-15.3); LYMPH % 13.7 % (9.0-44.0); MEAN CELL VOLUME 87.3 FL (80.0-100.0); MEAN CORPUSCULAR HEMOGLOBIN 30.9 PG (27.0-34.0); MEAN CORPUSCULAR HGB CONC 35.4 % (32.0-36.0); MEAN PLATELET VOLUME 8.9 FL (7.0-11.0); MONO % 9.5 % (0.0-8.0); MONOCYTE # 0.7 TH/MM3 (0-0.9); NEUT % 75.6 % (16.0-70.0); PLATELET COUNT 211 TH/MM3 (150-450); RED BLOOD COUNT 4.63 MIL/MM3 (4.00-5.30); RED CELL DISTRIBUTION WIDTH 12.9 % (11.6-17.2)
[2017-08-03 14:06] LABS: BICARBONATE 15.1 MEQ/L (21.0-32.0); CALCIUM 9.4 MG/DL (8.5-10.1); CREATININE 0.62 MG/DL (0.50-1.00)
[2017-08-03] MEDS ORDERED: LACTATED RINGER'S 1000 ML INJ 1,000 ML IV ONE ×2 (14:45→15:45)
[2017-08-03 15:16] LABS: AMORPHOUS SEDIMENT, URINE RARE; BILIRUBIN, URINE NEG (NEG); BLOOD, URINE NEG (NEG); GLUCOSE,URINE NEG (NEG); KETONE, URINE 150 mg/dL (NEG); MUCUS URINE FEW /lpf (OCC); NITRITE,URINE NEG (NEG); PH, URINE 6.5 (5.0-8.5); SQUAMOUS EPITHELIAL CELL URINE 2 /hpf (0-5); URINE COLOR YELLOW (YELLW/STRAW); URINE LEUKOCYTE ESTERASE NEG (NEG)
[2017-08-03] MEDS ORDERED: PROM2SUP RECTAL (15:44)
== END 2017-08-03 17:55 | disposition home or self-care (01) ==
LOC: NEPD 11:35
DX: O21.1 Hyperemesis gravidarum with metabolic disturbance (principal); O99.281 Endocrine, nutritional and metabolic diseases complicating pregnancy, first trimester; E86.0 Dehydration; Z3A.08 8 weeks gestation of pregnancy
CPT/HCPCS: 36600; 80048; 81001; 82805; 85025; 96361; 96374; 99284; J2765; J7030; J7120

== ENCOUNTER 2018-02-14 19:52 | Inpatient (IN) ==
--- NOTE | 2018-02-14 21:54 | ED ---
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 Patient reports passing large clots and going through about 6-8 tampons/pads per day. She states that about a week ago the bleeding seemed to have slowed down, however over the last week she has had a significant amount of bleeding. She has tried to make an appointment with an OB /DATA PROCESSING MANAGER physician as an outpatient, however has been unsuccessful. She states that on January 02 and for 3 days she had cramping, however she has no pain and states that she has had only intermittent cramps that feel like menstrual cramps. She denies fevers or chills. No foul-smelling discharge. She is sexually active with one partner and believes she is in a monogamous relationship. No history of bleeding disorders. Related Data Home Medications Medication Instructions Recorded Confirmed ferrous sulfate [Iron (ferrous 325 mg PO DAILY 02/14/18 02/14/18 sulfate)] multivitamin 1 tab PO DAILY 02/14/18 02/14/18 Allergies Allergy/AdvReac Type Severity Reaction Status Date / Time No Known Allergies Allergy Verified 02/14/18 20:50 Review of Systems ROS: all other systems reviewed are negative PMFSH Medical History Medical History Miscarriage (Acute) Social History Social History Substance History: No History of Abuse Second Hand Smoke Exposure: Yes Smoking Status: Never smoker How Often Do You Have a Drink Containing Alcohol: Never Recent Travel in [facility] within the Last 8 Weeks: No Recent Out of Country Travel within the Last 8 Weeks: No Immunization History Tetanus Immunization: Unsure Exam Narrative Exam Narrative: GENERAL: Pleasant, well-developed, well-nourished, comfortable, no apparent distress. SKIN: Focused skin assessment warm/dry. HEAD: Atraumatic. Normocephalic. EYES: Pupils equal and round. No scleral icterus. No injection or drainage. Conjunctival pallor. ENT: No nasal bleeding or discharge. Mucous membranes pink and moist. NECK: Trachea midline. No JVD. CARDIOVASCULAR: Regular rate and rhythm. No murmur appreciated. RESPIRATORY: No accessory muscle use. Clear to auscultation. Breath sounds equal bilaterally. GASTROINTESTINAL: Abdomen soft, non-tender, nondistended. DATA PROCESSING MANAGER: Exam performed in the presence of female nurse. Normal external genitalia. Moderate amount of blood in the vaginal vault coming from a closed cervix. No intravaginal or cervical lacerations. MUSCULOSKELETAL: No obvious deformities. No clubbing. No cyanosis. No edema. NEUROLOGICAL: Awake and alert. No obvious cranial nerve deficits. Motor grossly within normal limits. Normal speech. PSYCHIATRIC: Appropriate mood and affect; insight and judgment normal. Course Initial Documented Vital Signs Temperature 98.6 F 02/14/18 20:51 Pulse Rate 100 H 02/14/18 20:51 Respiratory Rate 16 02/14/18 20:51 Blood Pressure 160/69 H 02/14/18 20:51 Pulse Oximetry 100 02/14/18 20:51 Last Documented Vital Signs Temperature 98.6 F 02/14/18 20:51 Pulse Rate 100 H 02/14/18 20:51 Respiratory Rate 16 02/14/18 20:51 Blood Pressure 160/69 H 02/14/18 20:51 Pulse Oximetry 100 02/14/18 20:51 Critical Care Time Critical Care Time: Yes Total Critical Care Time: 35 Attestation: Aggregate critical care time was 35 minutes. Time to perform other separately billable procedures was not included in the critical care time. My time did not include minutes spent treating any other patients simultaneously or on activities that did not directly contribute to the patient's treatment. The services I provided to this patient were to treat and/or prevent clinically significant deterioration that could result in: , hemorrhagic shock, worsening clinical condition I provided critical care services requiring my management, as noted below: Chart data review, documentation time, medication orders and management, vital sign assessments/reviewing monitor data, ordering and reviewing lab tests, ordering and interpreting/reviewing x-rays and diagnostic studies, care of the patient and discussion of the patient with the admitting physicians. Medical Decision Making MDM Narrative Medical decision making narrative: Vital signs reviewed. Patient's initial heart rate was 100. Blood pressure initially was 160/69. CBC is remarkable for H&H of 6.6/19.5. The patient was here in July of this year and had a hemoglobin of 14. CMP is essentially unremarkable. Pelvic ultrasound: 1. Probable involuting follicle/cyst right ovary measuring 3.4 cm. 2. Otherwise unremarkable pelvic sonogram. The patient was made aware of all findings. Pelvic exam performed by me shows a moderate amount of blood in the vaginal vault coming from a closed cervix. There are no intravaginal lacerations noted or cervical lacerations. I discussed the case with on-call OB hospitalist Dr. Gasca and told him that I would likely be admitting the patient for significant anemia, symptomatic anemia , abnormal uterine bleeding. Initially his recommendation was to start the patient on simple control, however because the patient is being admitted, he recommends a dose of Premarin 25 mg IV now with a repeat dose in 8-12 hours if the patient's bleeding has not resolved. Patient was made aware of all findings and I consented her for blood transfusion. She will be given 2 units of PRBCs, Premarin 25 mg IV x1 now, and will be admitted for further treatment and evaluation of symptomatic anemia, abnormal uterine bleeding. Case discussed with hospitalist Dr. Noble who will admit the patient to her service. Medical Screen Exam Complete: Yes Emergency Medical Condition: Yes Differential Diagnosis Differential Diagnosis: Retained products of conception, abnormal uterine bleeding, anemia, endometritis/septic less likely Lab Data Result diagrams: 02/14/18 22:20 02/14/18 22:20 POC Results POC Urine Results Negative Lab Results 02/14/18 02/14/18 02/14/18 Range/Units 22:20 22:20 22:20 WBC 5.6 (4.0-11.0) th/mm3 RBC 2.32 L (4.00-5.30) mil/mm3 Hgb 6.6 L* (11.6-15.3) gm/dL Hct 19.5 L* (35.0-46.0) % MCV 84.1 (80.0-100.0) fL MCH 28.3 (27.0-34.0) pg MCHC 33.6 (32.0-36.0) % RDW 14.8 (11.6-17.2) % Plt Count 249 (150-450) th/mm3 MPV 7.7 (7.0-11.0) fL Prelim Diff (Auto) Slide review pending Neut % (Auto) 45.8 (16.0-70.0) % Lymph % (Auto) 34.8 (9.0-44.0) % Daniels % (Auto) 14.7 H (0.0-8.0) % Eos % (Auto) 4.1 H (0.0-4.0) % Baso % (Auto) 0.6 (0.0-2.0) % Neut # (Auto) 2.6 (1.8-7.7) th/mm3 Lymph # (Auto) 2.0 (1.0-4.8) th/mm3 Daniels # (Auto) 0.8 (0.0-0.9) th/mm3 Eos # (Auto) 0.2 (0.0-0.4) th/mm3 Baso # (Auto) 0.0 (0.0-0.2) th/mm3 WBC Differential . Diff Scan Auto diff confirmed Differential Comment . Platelet Estimate Normal (Normal) Platelet Morphology Normal (Normal) Ovalocytes 1+ H (None) Keratocytes Occ H (None) PT 10.4 (9.8-11.6) sec INR 1.0 Ratio APTT 22.9 L (23.4-31.7) sec Sodium 141 (136-145) meq/L Potassium 3.9 (3.5-5.1) meq/L Chloride 112 H (98-107) meq/L Carbon Dioxide 24.7 (21.0-32.0) meq/L Anion Gap 4 L (5-15) meq/L BUN 18 (7-18) mg/dL Creatinine 0.58 (0.50-1.00) mg/dL Estimated GFR Greater than 89 (>89) mL/min Random Glucose 85 (74-106) mg/dL Calcium 8.4 L (8.5-10.1) mg/dL Total Bilirubin 0.2 (0.2-1.0) mg/dL AST 14 L (15-37) U/L ALT 19 (10-53) U/L Alkaline Phosphatase 48 (45-117) U/L Total Protein 6.3 L (6.4-8.2) g/dL Albumin 3.4 (3.4-5.0) g/dL Urine Color (Yellw/Straw) Urine Clarity (Clear) Urine pH (5.0-8.5) Ur Specific [place] (1.002-1.035) Urine Protein (Neg-Trace) mg/dL Urine Glucose (UA) (Negative) mg/dL Urine Ketones (Negative) mg/dL Urine Occult Blood (Negative) Urine Nitrate (Negative) Urine Bilirubin (Negative) Urine Urobilinogen (Less than 2) mg/dL Ur Leukocyte Esterase (Negative) Urine RBC (0-3) /hpf Urine WBC (0-5) /hpf Ur Squamous Epith Cells (0-5) /hpf Calcium Oxalate Crystal (None) /hpf Hyaline Casts (0-3) /lpf Urine Mucus (Occasional) /lpf Micro UA Comment Ur Microscopic Review Urine Culture Comments Clue Cells (Wet Prep) (None Seen) Trichomonas (Wet Prep) (None Seen) Yeast (Wet Prep) (None Seen) Blood Type Blood Type Recheck Antibody Screen MTS Gel Crossmatch 02/14/18 02/14/18 02/14/18 Range/Units 22:20 22:30 23:10 WBC (4.0-11.0) th/mm3 RBC (4.00-5.30) mil/mm3 Hgb (11.6-15.3) gm/dL Hct (35.0-46.0) % MCV (80.0-100.0) fL MCH (27.0-34.0) pg MCHC (32.0-36.0) % RDW (11.6-17.2) % Plt Count (150-450) th/mm3 MPV (7.0-11.0) fL Prelim Diff (Auto) Neut % (Auto) (16.0-70.0) % Lymph % (Auto) (9.0-44.0) % Daniels % (Auto) (0.0-8.0) % Eos % (Auto) (0.0-4.0) % Baso % (Auto) (0.0-2.0) % Neut # (Auto) (1.8-7.7) th/mm3 Lymph # (Auto) (1.0-4.8) th/mm3 Daniels # (Auto) (0.0-0.9) th/mm3 Eos # (Auto) (0.0-0.4) th/mm3 Baso # (Auto) (0.0-0.2) th/mm3 WBC Differential Diff Scan Differential Comment Platelet Estimate (Normal) Platelet Morphology (Normal) Ovalocytes (None) Keratocytes (None) PT (9.8-11.6) sec INR Ratio APTT (23.4-31.7) sec Sodium (136-145) meq/L Potassium (3.5-5.1) meq/L Chloride (98-107) meq/L Carbon Dioxide (21.0-32.0) meq/L Anion Gap (5-15) meq/L BUN (7-18) mg/dL Creatinine (0.50-1.00) mg/dL Estimated GFR (>89) mL/min Random Glucose (74-106) mg/dL Calcium (8.5-10.1) mg/dL Total Bilirubin (0.2-1.0) mg/dL AST (15-37) U/L ALT (10-53) U/L Alkaline Phosphatase (45-117) U/L Total Protein (6.4-8.2) g/dL Albumin (3.4-5.0) g/dL Urine Color Yellow (Yellw/Straw) Urine Clarity Hazy H (Clear) Urine pH 6.0 (5.0-8.5) Ur Specific [place] 1.025 (1.002-1.035) Urine Protein Negative (Neg-Trace) mg/dL Urine Glucose (UA) Negative (Negative) mg/dL Urine Ketones Negative (Negative) mg/dL Urine Occult Blood Moderate H (Negative) Urine Nitrate Negative (Negative) Urine Bilirubin Negative (Negative) Urine Urobilinogen Less than 2 (Less than 2) mg/dL Ur Leukocyte Esterase Negative (Negative) Urine RBC 1 (0-3) /hpf Urine WBC 2 (0-5) /hpf Ur Squamous Epith Cells 3 (0-5) /hpf Calcium Oxalate Crystal Few H (None) /hpf Hyaline Casts 1 (0-3) /lpf Urine Mucus Few H (Occasional) /lpf Micro UA Comment Culture not ind Ur Microscopic Review Not Reportable Urine Culture Comments Culture not ind Clue Cells (Wet Prep) Present H (None Seen) Trichomonas (Wet Prep) None seen (None Seen) Yeast (Wet Prep) None seen (None Seen) Blood Type O Positive Blood Type Recheck Not needed Antibody Screen Negative MTS Gel Crossmatch 02/14/18 Range/Units 23:37 WBC (4.0-11.0) th/mm3 RBC (4.00-5.30) mil/mm3 Hgb (11.6-15.3) gm/dL Hct (35.0-46.0) % MCV (80.0-100.0) fL MCH (27.0-34.0) pg MCHC (32.0-36.0) % RDW (11.6-17.2) % Plt Count (150-450) th/mm3 MPV (7.0-11.0) fL Prelim Diff (Auto) Neut % (Auto) (16.0-70.0) % Lymph % (Auto) (9.0-44.0) % Daniels % (Auto) (0.0-8.0) % Eos % (Auto) (0.0-4.0) % Baso % (Auto) (0.0-2.0) % Neut # (Auto) (1.8-7.7) th/mm3 Lymph # (Auto) (1.0-4.8) th/mm3 Daniels # (Auto) (0.0-0.9) th/mm3 Eos # (Auto) (0.0-0.4) th/mm3 Baso # (Auto) (0.0-0.2) th/mm3 WBC Differential Diff Scan Differential Comment Platelet Estimate (Normal) Platelet Morphology (Normal) Ovalocytes (None) Keratocytes (None) PT (9.8-11.6) sec INR Ratio APTT (23.4-31.7) sec Sodium (136-145) meq/L Potassium (3.5-5.1) meq/L Chloride (98-107) meq/L Carbon Dioxide (21.0-32.0) meq/L Anion Gap (5-15) meq/L BUN (7-18) mg/dL Creatinine (0.50-1.00) mg/dL Estimated GFR (>89) mL/min Random Glucose (74-106) mg/dL Calcium (8.5-10.1) mg/dL Total Bilirubin (0.2-1.0) mg/dL AST (15-37) U/L ALT (10-53) U/L Alkaline Phosphatase (45-117) U/L Total Protein (6.4-8.2) g/dL Albumin (3.4-5.0) g/dL Urine Color (Yellw/Straw) Urine Clarity (Clear) Urine pH (5.0-8.5) Ur Specific [place] (1.002-1.035) Urine Protein (Neg-Trace) mg/dL Urine Glucose (UA) (Negative) mg/dL Urine Ketones (Negative) mg/dL Urine Occult Blood (Negative) Urine Nitrate (Negative) Urine Bilirubin (Negative) Urine Urobilinogen (Less than 2) mg/dL Ur Leukocyte Esterase (Negative) Urine RBC (0-3) /hpf Urine WBC (0-5) /hpf Ur Squamous Epith Cells (0-5) /hpf Calcium Oxalate Crystal (None) /hpf Hyaline Casts (0-3) /lpf Urine Mucus (Occasional) /lpf Micro UA Comment Ur Microscopic Review Urine Culture Comments Clue Cells (Wet Prep) (None Seen) Trichomonas (Wet Prep) (None Seen) Yeast (Wet Prep) (None Seen) Blood Type Blood Type Recheck Antibody Screen MTS Gel Crossmatch See Detail Imaging Data Radiologist's impression: Pelvis Ultrasound 02/14/18 21:47 CONCLUSION: 1. Probable involuting follicle/cyst right ovary measuring 3.4 cm. 2. Otherwise unremarkable pelvic sonogram. Discharge Plan Discharge Disposition Patient Disposition: ED Admit(ED Internal Use Only) Discharge Condition Condition: Stable Discharge Details Diagnosis: Symptomatic anemia, Abnormal uterine bleeding Physicians Team ED Provider: Nehemias Quiros Primary Care Provider: Daniela Estevez Rxs /Orders / Referrals /Forms Prescriptions: No Action multivitamin Tablet 1 tab PO DAILY RF: 0 ferrous sulfate [Iron (ferrous sulfate)] 325 mg (65 mg iron) Tablet 325 mg PO DAILY RF: 0 Status ED Status: Admitted Patient
[2018-02-14 22:41] LABS: Baso % (Auto) 0.6 % (0.0-2.0); Eos # (Auto) 0.2 th/mm3 (0.0-0.4); Eos % (Auto) 4.1 % (0.0-4.0); Lymph % (Auto) 34.8 % (9.0-44.0); Mean Corpuscular HGB Conc 33.6 % (32.0-36.0); Mean Corpuscular Hemoglobin 28.3 pg (27.0-34.0); Mean Corpuscular Volume 84.1 fL (80.0-100.0); Mean Platelet Volume 7.7 fL (7.0-11.0); Mono # (Auto) 0.8 th/mm3 (0.0-0.9); Mono % (Auto) 14.7 % (0.0-8.0); Neut # (Auto) 2.6 th/mm3 (1.8-7.7); Neut % (Auto) 45.8 % (16.0-70.0); Platelet Count 249 th/mm3 (150-450); Red Blood Count 2.32 mil/mm3 (4.00-5.30); Red Cell Distribution Width 14.8 % (11.6-17.2); White Blood Count 5.6 th/mm3 (4.0-11.0)
[2018-02-14 22:50] LABS: Hematocrit 19.5 % (35.0-46.0); Hemoglobin 6.6 gm/dL (11.6-15.3)
[2018-02-14 23:01] LABS: Bilirubin,Urine Negative (Negative); Calcium Oxalate Crystals,Urine Few /hpf; Clarity,Urine Hazy (Clear); Color,Urine Yellow (Yellw/Straw); Glucose,Urine (UA) Negative (Negative); Hyaline Casts,Urine 1 /lpf (0-3); Leukocyte Esterase,Urine Negative (Negative); Mucus,Urine Few /lpf (Occasional); Nitrite,Urine Negative (Negative); Specific Gravity,Urine 1.025 (1.002-1.035); Squamous Epithelial Cell,Urine 3 /hpf (0-5)
--- NOTE | 2018-02-14 23:01 | US ---
EXAM DATE: 02/14/2018 10:57 PM EST AGE/SEX: 22 years / Female INDICATIONS: Abnormal pelvic bleeding. CLINICAL DATA: This is the patient's initial encounter. Patient reports that signs and symptoms have been present for 1 month and indicates a pain score of 1/10. MEDICAL/SURGICAL HISTORY: . Miscarriage. None. [place] [facility] [place] 02[place]. . MEASUREMENTS: Uterus:__9.2 x 7.5 x 4.7 cm Endometrial Stripe:__>20 mm Right Ovary:__ 5.3 x 3.5 x 2.8 cm Left Ovary:__ 3.3 x 2.4 x 1.8 cm FINDINGS: Uterus: The myometrium has homogeneous echotexture without mass. Endometrial Stripe: The endometrial stripe displays homogeneous echotexture. Right Ovary: Ovary contains no mass. Follicles are present. Irregular cystic structure measures 3.4 x 3.0 x 1.5 cm. Left Ovary: Ovary contains no mass. Follicles are present. Fluid: No free fluid. Other: None. CONCLUSION: 1. Probable involuting follicle/cyst right ovary measuring 3.4 cm. 2. Otherwise unremarkable pelvic sonogram. Electronically signed by: Yeison Colunga MD Board Certified Radiologist 02/14/2018 11:00 PM EST
[2018-02-14 23:03] LABS: Alanine Aminotransferase 19 U/L (10-53); Albumin 3.4 g/dL (3.4-5.0); Anion Gap 4 meq/L (5-15); Aspartate Aminotransferase 14 U/L (15-37); Blood Urea Nitrogen 18 mg/dL (7-18); Calcium 8.4 mg/dL (8.5-10.1); Carbon Dioxide 24.7 meq/L (21.0-32.0); Chloride 112 meq/L (98-107); Glomerular Filtration Rate Greater Than 89 mL/min (>89); Glucose,Random 85 mg/dL (74-106); Potassium 3.9 meq/L (3.5-5.1); Sodium 141 meq/L (136-145)
[2018-02-14 23:05] LABS: Alkaline Phosphatase 48 U/L (45-117); Total Protein 6.3 g/dL (6.4-8.2)
[2018-02-14 23:06] LABS: Activated Partial Thrombo Time 22.9 sec (23.4-31.7); Prothrombin Time 10.4 sec (9.8-11.6)
[2018-02-14 23:26] LABS: Platelet Estimate Normal (Normal); Platelet Morphology Normal (Normal)
[2018-02-14 23:27] LABS: Ovalocytes 1+
[2018-02-14] MEDS ORDERED: Estrogens Conjugated Inj 25 MG Vial IV.PUSH ONE (23:31)
[2018-02-15] MEDS ORDERED: Acetaminophen 325 MG Tablet PO PRN ×2 (00:24→11:43)
[2018-02-15] MEDS ORDERED: Bisacodyl 10 MG Supp RECTAL PRN (00:24)
--- NOTE | 2018-02-15 00:35 | P.HP ---
History of Present Illness Service: [facility] Primary Care Physician: Daniela Estevez MD History of Present Illness: 22-year-old female with no significant past medical history presents to the emergency department for the evaluation of vaginal bleeding with accompanying dizziness, lightheadedness and palpitations. The patient is a Ab1 who believes she had a miscarriage on 01/02/18. The patient reports elective in July after which time she began taking oral contraception. She has not had a regular period since that time. She reports taking a test approximately 5 days before the date of her miscarriage which was positive. The patient reports several weeks of vaginal bleeding following the miscarriage. She then had a week without bleeding however approximately 1 week ago the bleeding began again. The patient reports the bleeding is very heavy and she is going through 7-8 pads per day. She also reports passing clots. While at work, the patient reports palpitations, dizziness and lightheadedness. Her hemoglobin was found to be 6.6 on arrival. No chest pain or shortness of breath. No abdominal pain. No pelvic pain. No nausea/vomiting/diarrhea. No fever/chills. Review of Systems All other systems reviewed negative except as stated in HPI PMFSH - History History Provided By: Patient - Medical History Medical History: Medical History (Last Reviewed 02/15/18 @ 00:30 by Zeina Noble MD) Miscarriage - Surgical History Surgical History: Surgical History (Last Updated 02/15/18 @ 00:31 by Zeina Noble MD) No history of previous surgery - Family History Family History: Family History (Last Updated 02/15/18 @ 00:31 by Zeina Noble MD) Other Family history normal - Social History I have reviewed the patient's Social History: Yes - Tobacco History Second Hand Smoke Exposure: Yes Smoking Status: Never smoker - Alcohol History How Often Do You Have a Drink Containing Alcohol: Never - Substance Use History Substance History: No History of Abuse - Travel History Recent Travel in the [place] Within the Last 8 Weeks: No Recent Travel Out of the Country Within the Last 8 Weeks: No - Immunization History Tetanus Immunization: Unsure Medications and Allergies Active Medications: Active Medications Sodium Chloride (Ns Flush) 2 ml IV.FLUSH PRN PRN PRN Reason: FLUSH AFTER USING IV ACCESS Allergies Allergy/AdvReac Type Severity Reaction Status Date / Time No Known Allergies Allergy Verified 02/14/18 20:50 Home Medications Medication Instructions Recorded Confirmed Type ferrous sulfate [Iron (ferrous 325 mg PO DAILY 02/14/18 02/14/18 History sulfate)] multivitamin 1 tab PO DAILY 02/14/18 02/14/18 History Exam Vital signs: Vital Signs 02/14/18 20:51 Temperature 98.6 F Pulse Rate 100 H Respiratory Rate 16 Blood Pressure 160/69 H Pulse Oximetry 100 Intake & Output 02/14/18 02/14/18 02/15/18 06:59 18:59 06:59 Weight 58.967 kg Narrative: Gen.: No acute distress Head: Normocephalic. Atraumatic. EENT: Pupils equal round and reactive to light. Nose without drainage. Airway intact. Throat without injection. Cardiovascular: Regular rate and rhythm. No murmurs, rubs or gallops. Respiratory: Lungs clear to auscultation bilaterally. No wheezes or rhonchi. Abdomen: Soft, nontender, nondistended. No peritoneal signs. Musculoskeletal: No gross deformities. No edema. Skin: No obvious rashes or erythema. Neuro: Sensory and motor grossly intact. Cranial nerves II through XII grossly intact. Results - Labs CBC & Chem 7: 02/14/18 22:20 02/14/18 22:20 Labs: Laboratory Results - last 24 hr 02/14/18 02/14/18 02/14/18 22:20 22:20 22:20 WBC 5.6 RBC 2.32 L Hgb 6.6 L* Hct 19.5 L* MCV 84.1 MCH 28.3 MCHC 33.6 RDW 14.8 Plt Count 249 MPV 7.7 Prelim Diff (Auto) Slide review pending Neut % (Auto) 45.8 Lymph % (Auto) 34.8 [place] % (Auto) 14.7 H Eos % (Auto) 4.1 H Baso % (Auto) 0.6 Neut # (Auto) 2.6 Lymph # (Auto) 2.0 [place] # (Auto) 0.8 Eos # (Auto) 0.2 Baso # (Auto) 0.0 WBC Differential . Diff Scan Auto diff confirmed Differential Comment . Platelet Estimate Normal Platelet Morphology Normal Ovalocytes 1+ H Keratocytes Occ H PT 10.4 INR 1.0 APTT 22.9 L Sodium 141 Potassium 3.9 Chloride 112 H Carbon Dioxide 24.7 Anion Gap 4 L BUN 18 Creatinine 0.58 Estimated GFR Greater than 89 Random Glucose 85 Calcium 8.4 L Total Bilirubin 0.2 AST 14 L ALT 19 Alkaline Phosphatase 48 Total Protein 6.3 L Albumin 3.4 Urine Color Urine Clarity Urine pH Ur Specific [place] Urine Protein Urine Glucose (UA) Urine Ketones Urine Occult Blood Urine Nitrate Urine Bilirubin Urine Urobilinogen Ur Leukocyte Esterase Urine RBC Urine WBC Ur Squamous Epith Cells Calcium Oxalate Crystal Hyaline Casts Urine Mucus Micro UA Comment Ur Microscopic Review Urine Culture Comments Clue Cells (Wet Prep) Trichomonas (Wet Prep) Yeast (Wet Prep) Blood Type Blood Type Recheck Antibody Screen MTS Gel Crossmatch 02/14/18 02/14/18 02/14/18 22:20 22:30 23:10 WBC RBC Hgb Hct MCV MCH MCHC RDW Plt Count MPV Prelim Diff (Auto) Neut % (Auto) Lymph % (Auto) [place] % (Auto) Eos % (Auto) Baso % (Auto) Neut # (Auto) Lymph # (Auto) [place] # (Auto) Eos # (Auto) Baso # (Auto) WBC Differential Diff Scan Differential Comment Platelet Estimate Platelet Morphology Ovalocytes Keratocytes PT INR APTT Sodium Potassium Chloride Carbon Dioxide Anion Gap BUN Creatinine Estimated GFR Random Glucose Calcium Total Bilirubin AST ALT Alkaline Phosphatase Total Protein Albumin Urine Color Yellow Urine Clarity Hazy H Urine pH 6.0 Ur Specific [place] 1.025 Urine Protein Negative Urine Glucose (UA) Negative Urine Ketones Negative Urine Occult Blood Moderate H Urine Nitrate Negative Urine Bilirubin Negative Urine Urobilinogen Less than 2 Ur Leukocyte Esterase Negative Urine RBC 1 Urine WBC 2 Ur Squamous Epith Cells 3 Calcium Oxalate Crystal Few H Hyaline Casts 1 Urine Mucus Few H Micro UA Comment Culture not ind Ur Microscopic Review Not Reportable Urine Culture Comments Culture not ind Clue Cells (Wet Prep) Present H Trichomonas (Wet Prep) None seen Yeast (Wet Prep) None seen Blood Type O Positive Blood Type Recheck Not needed Antibody Screen Negative MTS Gel Crossmatch 02/14/18 23:37 WBC RBC Hgb Hct MCV MCH MCHC RDW Plt Count MPV Prelim Diff (Auto) Neut % (Auto) Lymph % (Auto) [place] % (Auto) Eos % (Auto) Baso % (Auto) Neut # (Auto) Lymph # (Auto) [place] # (Auto) Eos # (Auto) Baso # (Auto) WBC Differential Diff Scan Differential Comment Platelet Estimate Platelet Morphology Ovalocytes Keratocytes PT INR APTT Sodium Potassium Chloride Carbon Dioxide Anion Gap BUN Creatinine Estimated GFR Random Glucose Calcium Total Bilirubin AST ALT Alkaline Phosphatase Total Protein Albumin Urine Color Urine Clarity Urine pH Ur Specific [place] Urine Protein Urine Glucose (UA) Urine Ketones Urine Occult Blood Urine Nitrate Urine Bilirubin Urine Urobilinogen Ur Leukocyte Esterase Urine RBC Urine WBC Ur Squamous Epith Cells Calcium Oxalate Crystal Hyaline Casts Urine Mucus Micro UA Comment Ur Microscopic Review Urine Culture Comments Clue Cells (Wet Prep) Trichomonas (Wet Prep) Yeast (Wet Prep) Blood Type Blood Type Recheck Antibody Screen MTS Gel Crossmatch See Detail - Imaging Impressions Pelvis Ultrasound 02/14/18 21:47 CONCLUSION: 1. Probable involuting follicle/cyst right ovary measuring 3.4 cm. 2. Otherwise unremarkable pelvic sonogram. Caprini VTE Risk Assessment Caprini VTE Risk Assessment: No/Low Risk (score <= 1) Caprini Risk Assessment Model: Point Value = 1 Point Value = 2 Point Value = 3 Point Value = 5 Age 41-60 Minor surgery BMI > 25 kg/m2 Swollen legs Varicose veins or History of unexplained or recurrent spontaneous Oral contraceptives or hormone replacement Sepsis (< 1 month) Serious lung disease, including pneumonia (< 1 month) Abnormal pulmonary function Acute myocardial infarction Congestive heart failure (< 1 month) History of inflammatory bowel disease Medical patient at bed rest Age 61-74 Arthroscopic surgery Major open surgery (> 45 min) Laparoscopic surgery (> 45 min) Malignancy Confined to bed (> 72 hours) Immobilizing plaster cast Central venous access Age >= 75 History of VTE Family history of VTE Factor V Leiden Prothrombin [id number] Lupus anticoagulant Anticardiolipin antibodies Elevated serum homocysteine Heparin-induced thrombocytopenia Other congenital or acquired thrombophilia Stroke (< 1 month) Elective arthroplasty Hip, pelvis, or leg fracture Acute spinal cord injury (< 1 month) Prophylaxis Regimen: Total Risk Factor Score Risk Level Prophylaxis Regimen 0-1 Low Early ambulation 2 Moderate Order ONE of the following: *Sequential Compression Device (SCD) *Heparin 5000 units SQ BID 3-4 Higher Order ONE of the following medications: *Heparin 5000 units SQ TID *Enoxaparin/Lovenox 40 mg SQ daily (WT < 150 kg, CrCl > 30 mL/min) *Enoxaparin/Lovenox 30 mg SQ daily (WT < 150 kg, CrCl > 10-29 mL/min) *Enoxaparin/Lovenox 30 mg SQ BID (WT < 150 kg, CrCl > 30 mL/min) AND/OR *Sequential Compression Device (SCD) 5 or more Highest Order ONE of the following medications: *Heparin 5000 units SQ TID (Preferred with Epidurals) *Enoxaparin/Lovenox 40 mg SQ daily (WT < 150 kg, CrCl > 30 mL/min) *Enoxaparin/Lovenox 30 mg SQ daily (WT < 150 kg, CrCl > 10-29 mL/min) *Enoxaparin/Lovenox 30 mg SQ BID (WT < 150 kg, CrCl > 30 mL/min) AND *Sequential Compression Device (SCD) Assessment and Plan - Plan Assessment/plan: 1. Symptomatic anemia Transfuse 2 units packed red blood cells Secondary to vaginal bleeding Repeat CBC in a.m. 2. Vaginal bleeding following miscarriage Pelvic ultrasound shows involuting cyst in the right ovary, otherwise unremarkable Premarin per OB recommendations Consult OB, appreciate assistance FEN Regular diet Electrolytes: Monitor and replete as needed
[2018-02-15 07:11] LABS: Baso % (Auto) 0.4 % (0.0-2.0); Eos # (Auto) 0.3 th/mm3 (0.0-0.4); Eos % (Auto) 5.3 % (0.0-4.0); Hematocrit 24.4 % (35.0-46.0); Hemoglobin 8.2 gm/dL (11.6-15.3); Lymph # (Auto) 2.1 th/mm3 (1.0-4.8); Lymph % (Auto) 38.1 % (9.0-44.0); Mean Corpuscular HGB Conc 33.5 % (32.0-36.0); Mean Corpuscular Hemoglobin 28.4 pg (27.0-34.0); Mean Corpuscular Volume 84.8 fL (80.0-100.0); Mean Platelet Volume 7.8 fL (7.0-11.0); Mono # (Auto) 0.9 th/mm3 (0.0-0.9); Mono % (Auto) 15.7 % (0.0-8.0); Neut # (Auto) 2.2 th/mm3 (1.8-7.7); Neut % (Auto) 40.5 % (16.0-70.0); Platelet Count 186 th/mm3 (150-450); Red Blood Count 2.87 mil/mm3 (4.00-5.30); Red Cell Distribution Width 14.5 % (11.6-17.2); White Blood Count 5.5 th/mm3 (4.0-11.0)
[2018-02-15] MEDS ORDERED: metroNIDAZOLE 500 MG Tablet PO SCH (09:00)
[2018-02-15] MEDS ORDERED: Influenza (Quadrivalent) Vaccine 0.5 ML Syringe IM ONE (09:00)
[2018-02-15] MEDS: Senna/Docusate Sodium 8.6/50 MG Tablet PO SCH ×2 (09:18→20:13)
[2018-02-15] MEDS: metroNIDAZOLE 500 MG Tablet PO SCH ×2 (10:00→20:15)
--- NOTE | 2018-02-15 11:51 | P.PNIM ---
Subjective Interval history: Patient seen lying in bed. She tells me that she feels once blood transfusion. No dizziness or syncope. No chest pain or shortness of breath. She does not know if she is still bleeding vaginally as she has not been out of the bed yet this morning. Discussed the labs were positive for BV. Patient said she suspected this due to some strong smelling discharge. Physical Exam Vital signs: Last Vital Signs Temp 96.8 F L 02/15/18 05:59 Pulse 77 02/15/18 08:00 Resp 16 02/15/18 05:59 BP 104/64 02/15/18 05:59 Pulse Ox 100 02/15/18 05:59 Intake & Output 02/13/18 02/14/18 02/15/18 02/16/18 06:59 06:59 06:59 06:59 Intake Total 1040 / 1040 Balance 1040 / 1040 Weight 58.9 kg Narrative: GENERAL: Well-nourished, well-developed adult female in no obvious distress. SKIN: Warm and dry. HEAD: Atraumatic. Normocephalic. CARDIOVASCULAR: Regular rate and rhythm. RESPIRATORY: No accessory muscle use. Clear to auscultation. Breath sounds equal bilaterally. GASTROINTESTINAL: Abdomen soft, non-tender, non-distended. Positive bowel sounds. MUSCULOSKELETAL: Extremities without clubbing, cyanosis, or edema. No obvious deformities. NEUROLOGICAL: Awake and alert. No obvious cranial nerve deficits. Motor grossly within normal limits. Normal speech. PSYCHIATRIC: Appropriate mood and affect; insight and judgment good. Results Labs CBC & Chem 7: 02/15/18 06:24 02/14/18 22:20 Imaging Imaging: Impressions Pelvis Ultrasound 02/14/18 21:47 CONCLUSION: 1. Probable involuting follicle/cyst right ovary measuring 3.4 cm. 2. Otherwise unremarkable pelvic sonogram. Assessment and Plan Plan Patient is a 22-year-old female with no significant past medical history who presents to the emergency room for an evaluation of vaginal bleeding. Found to have symptomatic anemia -hemoglobin 6.6 on arrival. Recent miscarriage 01/02/18. Anemia secondary to vaginal bleeding -Received 2 units PRBCs; hemoglobin subsequently improved to 7.9 -OP consulted -started Premarin Bacterial vaginosis -Flagyl DVT prophylaxis: Ambulatory Discharge planning: Likely home Nonbillable round. Progress Note: Quality VTE Deep Vein Thrombosis/Pulmonary Embolism Present on Admission: No
[2018-02-15] MEDS ORDERED: Azithromycin Powder 1 GM Packet PO ONE (15:00)
--- NOTE | 2018-02-15 21:36 | P.CONOB ---
History of Present Illness - Data of Consult Patient: new to practice Consult date: 02/15/18 Requesting Physician: Valeria Coy MD Primary Care Provider: Daniela Estevez MD Family Provider: Carey Archer MD - Consult Narrative Reason for consult: vaginal bleeding (, anemia) Narrative: Karlie Morris is a 22 year old female who presented to the ER with c/ o vaginal bleeding and dizziness. She had SAB Dec 2017 and has continued to have vaginal bleeding. She was on BCP prior to that . US did not show any retained POC. She was found to have Hgb 6 and was given 2 units of PRBCs. Hgb is now 8.2. She is feeling better. She has been getting Premarin and her bleeding is better. She is feeling better at this time. Review of Systems All other systems reviewed negative except as stated in HPI PMFSH - History History Provided By: Patient (OB Hx - 09/14/16- Vag delivery, 07/2017- EAB, SAB ) - Medical / Surgical Hx Neg / Unobtainable Medical Problems Denied: Yes - Medical History Medical History: Medical History (Last Reviewed 02/15/18 @ 21:29 by Lisbeth Solano DO) Miscarriage - Surgical History Surgical History: Surgical History (Last Reviewed 02/15/18 @ 21:29 by Lisbeth Solano DO) No history of previous surgery - Family History Family History: Family History (Last Updated 02/15/18 @ 00:31 by Zeina Noble MD) Other Family history normal - Social History I have reviewed the patient's Social History: Yes - Tobacco History Second Hand Smoke Exposure: No Smoking Status: Former smoker Tobacco Type: Cigarettes Smoking End Date: Dec 2017- smoked 3 cig/day - Alcohol History How Often Do You Have a Drink Containing Alcohol: Never - Substance Use History Substance History: No History of Abuse - Travel History Recent Travel in the [place] Within the Last 8 Weeks: No Recent Travel Out of the Country Within the Last 8 Weeks: No - Immunization History Tetanus Immunization: Unsure Hx Influenza Vaccine This Season: No Medications and Allergies Active Medications: Active Medications Acetaminophen (Tylenol) 650 mg PO Q4H PRN PRN Reason: PAIN 1-10 AND/OR FEVER >101F Last Admin: 02/15/18 20:15 Dose: 650 mg Al Hydroxide/Mg Hydroxide (Milk Of Magnesia Liq) 30 ml PO Q12H PRN PRN Reason: Mild Constipation Bisacodyl (Dulcolax Supp) 10 mg RECTAL DAILY PRN PRN Reason: SEVERE CONSITIPATION Lactulose (Lactulose Liq) 30 ml PO DAILY PRN PRN Reason: SEVERE CONSITIPATION Metronidazole (Flagyl) 500 mg PO BID [facility] Stop: 02/21/18 23:00 Last Admin: 02/15/18 20:15 Dose: 500 mg Ondansetron HCl (Zofran Inj) 4 mg IV.PUSH Q6H PRN PRN Reason: NAUSEA OR VOMITING Last Admin: 02/15/18 09:14 Dose: 4 mg Senna/Docusate Sodium (Mary-Colace) 1 tab PO BID [facility] Last Admin: 02/15/18 20:13 Dose: 1 tab Sennosides (Senokot) 17.2 mg PO Q12H PRN PRN Reason: Moderate Constipation Sodium Chloride (Ns Flush) 2 ml IV.FLUSH BID [facility] Last Admin: 02/15/18 20:17 Dose: 2 ml Sodium Chloride (Ns Flush) 2 ml IV.FLUSH PRN PRN PRN Reason: FLUSH AFTER USING IV ACCESS Allergies Allergy/AdvReac Type Severity Reaction Status Date / Time No Known Allergies Allergy Verified 02/14/18 20:50 Home Medications Medication Instructions Recorded Confirmed Type ferrous sulfate [Iron (ferrous 325 mg PO DAILY 02/14/18 02/15/18 History sulfate)] multivitamin 1 tab PO DAILY 02/14/18 02/15/18 History Physical Exam Vital signs: Temp Pulse Resp BP Pulse Ox 98.3 F 92 H 14 102/57 L 100 02/15/18 16:00 02/15/18 20:00 02/15/18 16:00 02/15/18 16:00 02/15/18 16:00 - Constitutional no acute distress - Routine Abdominal Exam Present: soft Results - Labs CBC & Chem 7: 02/15/18 06:24 02/14/18 22:20 Labs: Short CBC 02/14/18 02/15/18 Range/Units 22:20 06:24 WBC 5.6 5.5 (4.0-11.0) th/mm3 Hgb 6.6 L* 8.2 L (11.6-15.3) gm/dL Hct 19.5 L* 24.4 L (35.0-46.0) % Plt Count 249 186 (150-450) th/mm3 BMP 02/14/18 22:20 Sodium 141 Potassium 3.9 Chloride 112 H Carbon Dioxide 24.7 BUN 18 Creatinine 0.58 Calcium 8.4 L Liver Function 02/14/18 Range/Units 22:20 Total Bilirubin 0.2 (0.2-1.0) mg/dL AST 14 L (15-37) U/L ALT 19 (10-53) U/L Alkaline Phosphatase 48 (45-117) U/L Albumin 3.4 (3.4-5.0) g/dL Urine 02/14/18 Range/Units 22:30 Urine Color Yellow (Yellw/Straw) Urine Clarity Hazy H (Clear) Urine pH 6.0 (5.0-8.5) Ur Specific [place] 1.025 (1.002-1.035) Urine Protein Negative (Neg-Trace) mg/dL Urine Glucose (UA) Negative (Negative) mg/dL - Imaging Impressions Pelvis Ultrasound 02/14/18 21:47 CONCLUSION: 1. Probable involuting follicle/cyst right ovary measuring 3.4 cm. 2. Otherwise unremarkable pelvic sonogram. Assessment and Plan - Assessment (1) Menorrhagia Code(s): N92.0 - Excessive and frequent menstruation with regular cycle Status : Acute (2) Symptomatic anemia Code(s): D64.9 - Anemia, unspecified Status: Acute - Plan Rec starting pt on 30 or 35 mcg BCP- 2/day x 7 days then 1/day for 7 days. F/u with [employer] education [employer]. Thanks for this consult. Pt OK for discharge from [employer] standpoint.
[2018-02-16 04:47] VITALS: O2SAT 100
[2018-02-16 05:13] LABS: Hematocrit 25.9 % (35.0-46.0); Hemoglobin 8.9 gm/dL (11.6-15.3)
[2018-02-16] MEDS: Senna/Docusate Sodium 8.6/50 MG Tablet PO SCH (08:24)
[2018-02-16] MEDS: metroNIDAZOLE 500 MG Tablet PO SCH (08:24)
--- NOTE | 2018-02-16 08:39 | P.PNIM ---
Subjective Interval history: Patient is seen sitting up in bed. She reports that she is feeling much better and would like to go home today. No chest pain, palpitations or shortness of breath. Bleeding has greatly improved. No dizziness or syncope. She was treated for chlamydia with azithromycin 1 g. Understands that she needs her partner treated to prevent reinfection. Physical Exam Vital signs: Last Vital Signs Temp 97.9 F 02/16/18 04:46 Pulse 90 02/16/18 04:46 Resp 20 02/16/18 04:46 BP 113/68 02/16/18 04:46 Pulse Ox 100 02/16/18 04:46 Intake & Output 02/14/18 02/15/18 02/16/18 02/17/18 06:59 06:59 06:59 06:59 Intake Total 1040 / 1040 1320 / 1320 Balance 1040 / 1040 1320 / 1320 Weight 58.9 kg 56.8 kg Narrative: GENERAL: Well-nourished, well-developed adult female in no obvious distress. SKIN: Warm and dry. HEAD: Atraumatic. Normocephalic. CARDIOVASCULAR: Regular rate and rhythm. RESPIRATORY: No accessory muscle use. Clear to auscultation. Breath sounds equal bilaterally. GASTROINTESTINAL: Abdomen soft, non-tender, non-distended. Positive bowel sounds. MUSCULOSKELETAL: Extremities without clubbing, cyanosis, or edema. No obvious deformities. NEUROLOGICAL: Awake and alert. No obvious cranial nerve deficits. Motor grossly within normal limits. Normal speech. PSYCHIATRIC: Appropriate mood and affect; insight and judgment good. Results Labs CBC & Chem 7: 02/16/18 04:13 02/14/18 22:20 Assessment and Plan (1) Menorrhagia: Code(s): N92.0 - Excessive and frequent menstruation with regular cycle Status: Acute (2) Symptomatic anemia: Code(s): D64.9 - Anemia, unspecified Status: Acute Plan Patient is a 22-year-old female with no significant past medical history who presents to the emergency room for an evaluation of vaginal bleeding. Found to have symptomatic anemia -hemoglobin 6.6 on arrival. Recent miscarriage 01/02/18. Anemia secondary to vaginal bleeding -Received 2 units PRBCs; hemoglobin subsequently improved to 7.9 -OP consulted -started Premarin Bacterial vaginosis -Flagyl. Education provided on not drinking EtOH while taking Flagyl and for 3 days afterwards Chlamydia -Received 1 g of azithromycin. Will have partner follow-up with health department for treatment. DVT prophylaxis: Ambulatory Discharge planning: Home today Progress Note: Quality VTE Deep Vein Thrombosis/Pulmonary Embolism Present on Admission: No _ (1) Menorrhagia Qualifiers: Menorrahagia type:
--- NOTE | 2018-02-16 08:42 | P.DS ---
DS: Providers Date of admission: 02/15/18 00:24 Primary care physician: Daniela Estevez MD Consults: 02/15/18 00:33 Consult to Obstetrics Routine Consulting Provider: Nataly Sellers Reason for Consultation: Symptomatic anemia following miscarriage with persistent vaginal bleeding Notified:: Service Spoke with:: NO Date Notified:: 02/15/18 Time Notified:: 00:43 Ordering Provider: [place] 02/15/18 02:03 HUB Only Consult Order Routine Consulting Provider: Early Knowled[employer]re[employer],Insurance Brief History from admission: 22-year-old female with no significant past medical history presents to the emergency department for the evaluation of vaginal bleeding with accompanying dizziness, lightheadedness and palpitations. The patient is a Ab1 who believes she had a miscarriage on 01/02/18. The patient reports elective in July after which time she began taking oral contraception. She has not had a regular period since that time. She reports taking a test approximately 5 days before the date of her miscarriage which was positive. The patient reports several weeks of vaginal bleeding following the miscarriage. She then had a week without bleeding however approximately 1 week ago the bleeding began again. The patient reports the bleeding is very heavy and she is going through 7-8 pads per day. She also reports passing clots. While at work, the patient reports palpitations, dizziness and lightheadedness. Her hemoglobin was found to be 6.6 on arrival. No chest pain or shortness of breath. No abdominal pain. No pelvic pain. No nausea/vomiting/diarrhea. No fever/chills. DS: Diagnosis Discharge Diagnosis (1) Menorrhagia: Status: Acute (2) Symptomatic anemia: Status: Acute DS: Summary Patient is a 22-year-old female with no significant past medical history who presents to the emergency room for an evaluation of vaginal bleeding. Found to have symptomatic anemia -hemoglobin 6.6 on arrival. Recent miscarriage 01/02/18. Anemia secondary to vaginal bleeding; resolved -Received 2 units PRBCs; hemoglobin subsequently improved to 7.9 -OP consulted -started Premarin Bacterial vaginosis; treated -Flagyl. Education provided on not drinking EtOH while taking Flagyl and for 3 days afterwards Chlamydia; treated -Received 1 g of azithromycin. Will have partner follow-up with health department for treatment. Time Spent with Patient Total time spent providing and/or coordinating discharge services: < 30 min Quality: VTE Deep Vein Thrombosis/Pulmonary Embolism Present on Admission: No Exam Narrative Exam Narrative: GENERAL: Well-nourished, well-developed adult female in no obvious distress. SKIN: Warm and dry. HEAD: Atraumatic. Normocephalic. CARDIOVASCULAR: Regular rate and rhythm. RESPIRATORY: No accessory muscle use. Clear to auscultation. Breath sounds equal bilaterally. GASTROINTESTINAL: Abdomen soft, non-tender, non-distended. Positive bowel sounds. MUSCULOSKELETAL: Extremities without clubbing, cyanosis, or edema. No obvious deformities. NEUROLOGICAL: Awake and alert. No obvious cranial nerve deficits. Motor grossly within normal limits. Normal speech. PSYCHIATRIC: Appropriate mood and affect; insight and judgment good. Results Labs on day of discharge: Labs from last 24 hours 02/16/18 02/15/18 04:13 16:53 Hgb 8.9 L Hct 25.9 L Beta HCG, Qual Less than 1.0 Impressions ITS Impressions Pelvis Ultrasound 02/14/18 21:47 CONCLUSION: 1. Probable involuting follicle/cyst right ovary measuring 3.4 cm. 2. Otherwise unremarkable pelvic sonogram. Discharge Plan Discharge Disposition Patient Disposition: Discharge Home Discharge Condition Condition: Stable Discharge Order Discharge Orders: Discharge Order (Routine); Ordered 02/16/18 Ordered By: Radha Ortiz Discharge Details Anticipated Discharge Date: 02/16/18 Physicians Team Primary Care Provider: Daniela Estevez Attending Provider: Valeria Coy Other Providers: Nataly Sellers ; [facility],Insurance ; Sienna Peter Rxs /Orders / Referrals /Forms Prescriptions: New metronidazole 500 mg Tablet 500 mg PO BID Qty: 12 RF: 0 Continue multivitamin Tablet 1 tab PO DAILY RF: 0 ferrous sulfate [Iron (ferrous sulfate)] 325 mg (65 mg iron) Tablet 325 mg PO DAILY RF: 0 Referrals: Carey Archer MD [Family Provider] - See Instructions Daniela Estevez MD [Primary Care Provider] - See Instructions Discharge Instructions Patient Printed Instructions: Dysfunctional Uterine Bleeding (GEN), Iron Rich Diet (GEN) Status ED Status: Left Department
[2018-02-16 09:14] VITALS: BP 104/56; PULSE 74; RESP 18; TEMP 97.8
== END 2018-02-16 10:36 | disposition home or self-care (01) ==
LOC: NEPD 19:52 → NEDA 02-15 00:53 → N06 02-15 02:24
PROVIDERS: ADMIT Hospitalist; ATTEND Hospitalist
DX: N93.8 Other specified abnormal uterine and vaginal bleeding; B96.89 Other specified bacterial agents as the cause of diseases classified elsewhere; N76.0 Acute vaginitis; Z87.891 Personal history of nicotine dependence; D50.0 Iron deficiency anemia secondary to blood loss (chronic)